=== PATIENT | female | born 1995 | race Caucasian/White ===

== ENCOUNTER 2019-02-07 00:18 | Inpatient (IN) | payer SELFPAY ==
[2019-02-07 01:41] VITALS: BMI 35.4
[2019-02-07 01:58] LABS: Absolute Lymphocyte Count 2.09 X10^3/uL (0.83-4.51); Absolute Neutrophil Count 12.3 X10^3/uL (2.0-7.7); Basophil# 0.04 X10^3/uL; Basophil% 0.3 % (0-1); Eosinophil# 0.12 X10^3/uL; Eosinophils% 0.8 % (0-5); Hematocrit 34.6 % (37-47); Hemoglobin 11.3 g/dL (12.0-15.0); Lymphocyte # 2.09 X10^3/ul (4.0); Lymphocyte % 13.3 % (19-41); Mean Corp Hgb Conc 32.7 g/dL (32-36); Mean Corpuscular Volume 79.7 fL (81-99); Mean Platelet Vol. 9.5 fl (6.2-12.0); Monocyte# 1.03 X10^3/uL; Monocyte% 6.6 % (0-10); NRBC Flagged by Analyzer 0 % (0-5); Neutrophil # 12.28 X10^3/uL (2.7-7.7); Neutrophil % 78.3 % (47-70); Platelet Count 340 K/mm3 (150-450); RBC Distribution Width CV 14.8 % (11.6-14.6); Red Blood Count 4.34 M/mm3 (4.2-5.4); White Blood Count 15.7 K/mm3 (4.4-11.0)
[2019-02-07] MEDS: Lactated Ringers 1,000 ML 50 ML IV (03:00)
[2019-02-07] MEDS: 0.9% Saline Lock 10 ML Syringe IV (03:00)
[2019-02-07] MEDS: Ondansetron 4 MG/2 ML Vial IV (03:50)
[2019-02-07] MEDS: Oxytocin 30 units/NS 500 ml 30 UNITS/500 ML IV.SOLN 334 UNITS IV (04:04)
--- NOTE | 2019-02-07 04:15 | PCM.OPRPT ---
Vaginal Delivery Maternal Presentation: Active Labor Amniotic Membrane Rupture Type: Artificial Amniotic Fluid Description: Moderate meconium Final NOAM: 01/28/19 Gestational age: 41 Weeks and 3 Days Date of Procedure: 02/07/19 Pre-Operative Diagnosis: labor Post-Operative Diagnosis: same Surgery/ Procedure Performed: Spontaneous Vaginal Delivery Type of Anesthesia: None Description of Procedure: A vigorous female infant was delivered DADA over intact perineum. The baby was delivered easily through a loose nuchal cord x1. The remainder the was delivered with maternal pushing and gentle traction only in less than 15 seconds. The Pitocin infusion was initiated for active management of the third stage. The cord was clamped and cut after 1 minute. The was attended to by the waiting nursing staff. The placenta was delivered spontaneously and intact. The cervix and vagina were intact. Sponge and needle counts were correct. A vaginal sweep was completed by me. Presentation: DADA Placental Delivery Description: Spontaneous Placenta Disposition: [facility] Cord Vessel Description: 3 Vessels Nuchal Cord Compression: Without compression Cord Entanglement: Around neck x 1, loose Drain: - - none Estimated Blood Loss: 300 Infant A gender: Female (1 minute): 8 (5 minute): 9 Episiotomy Description: None Laceration: None Medications given after delivery: IV Pitocin Complications: None
--- NOTE | 2019-02-07 04:21 | HP.PCM_ITS ---
History Date of Admission: 02/07/19 Final NOAM: 01/28/19 Gestational age: 41 Weeks and 3 Days History of this : This is a 24 year-old, 4 para 1 at 41-3/7 weeks presented in active labor. She had been receiving care from a manager home healthcare, but had established in our office earlier in . She transferred back to our office last week for being 41 weeks with a hemoglobin of 9.6 and was counseled by her manager home healthcare that she was not a good candidate for home because of this. She presented today in labor denied any vaginal bleeding or leaking of fluid. She had good movement. Contractions were getting more intense and regular. She has a history of a full-term vaginal approximately 8-1/2 pounds without complications in the past. Medical history significant for history of asthma as a child, history of anxiety, obesity in with BMI of 35 at this time, and tract infection [place] in . Allergies No Known Allergies Allergy (Verified 02/07/19 01:42) Home Medications: Home Medications Ferrous Sulfate 325 mg PO BID 02/07/19 Pnv No.95/Ferrous Fum/Folic AC [ Caplet] 1 ea PO DAILY 02/07/19 Smoking Status: Never smoker Alcohol: None Number of Fetus(es): 1 History Past Pregnancies: Past Pregnancies Delivery Date Name GA/ Weeks Outcome Route Wt Infant Sex Labor Length Anesthesia Delivery Location Provider FOB Expected Delivery Method: Spontaneous Vaginal Review of Systems Constitutional: Denies: Chills, Fever Eyes: Denies: Blurred vision Cardiovascular: Denies: Chest Pain Respiratory: Denies: Cough Gastrointestinal: Reports: Abdominal Pain Physical Exam General: Cooperative, No apparent distress Cardiovascular: Regular rate Lungs: Normal air movement Abdomen: Soft, Non Tender, Non-Distended, Gravid, Appropriate for Gestational Age EXTENSION EDUCATOR: Normal external genitalia Estimated gestational size: Appropriate for gestational size Presentation: Cephalic Assessment/Plan This is a 24 year-old, 4 para 1 at 41-3/7 weeks gestation in spontaneous labor. Estimated weight is less than 4500 g clinically and by ultrasound performed last week, this clinically adequate to expect vaginal delivery.
[2019-02-07 08:16] VITALS: BP 130/59; PULSE 89; RESP 16; TEMP 36.9; O2SAT 99
[2019-02-07] MEDS: Naproxen 250 MG Tablet 500 MG PO (10:55)
[2019-02-07 14:00] VITALS: BP 125/78; PULSE 78; RESP 17; TEMP 36.6
[2019-02-07 20:04] VITALS: BP 128/66; PULSE 73; RESP 16; TEMP 36.6; O2SAT 98
[2019-02-07 23:22] VITALS: BP 111/56; PULSE 75; RESP 14; TEMP 36.6
[2019-02-08 05:21] VITALS: BP 116/54; PULSE 79; RESP 16; TEMP 36.4
[2019-02-08 08:40] VITALS: BP 127/57; PULSE 74; RESP 16; TEMP 36.5
--- NOTE | 2019-02-08 09:02 | PCM.PN.OB ---
Subjective: Doing well per patient and nursing staff. Ambulating and taking PO without difficulty. Voiding and passing flatus. without difficulty. Planning D/C home today. - Physical Exam Vitals/I&O's: Vital Signs Temp Pulse Resp BP Pulse Ox 97.5 F L 79 16 116/54 L 98 02/08/19 05:21 02/08/19 05:21 02/08/19 05:21 02/08/19 05:21 02/07/19 20:04 Oxygen Delivery Method Room Air Weight: 206 lb 6.4 oz Body Mass Index (BMI) 35.4 Intake and Output for Last 24 Hours 02/06/19 02/07/19 02/08/19 23:59 23:59 23:59 Intake Total 550 / 550 Output Total 600 / 600 Balance -50 / -50 General: Alert, Oriented x3, Cooperative HEENT: Atraumatic, Normocephalic Neck: Trachea Midline Lungs: Clear to auscultation, Normal air movement, No rhonchi, No wheeze Cardiovascular: Regular rate, Regular Rhythm, No murmurs Abdomen: Soft, Non Tender, - - Fundus firm 2 below U Psych/Mental Status: Normal Affect, Appropriate Laboratory Results 02/07/19 08:20: Screen NEGATIVE, Baby's Blood Type O POSITIVE, Baby's REINIER NEGATIVE Current Medications Acetaminophen (Tylenol) 1,000 mg PO Q8H PRN PRN PRN Reason: Pain Score 1-3/10 Bisacodyl (Dulcolax) 10 mg RECTAL UD PRN PRN Reason: If no BM Dibucaine (Dibucaine) 1 applic TOPICAL TID PRN PRN; Protocol PRN Reason: Discomfort Hydrocortisone (Hytone) 1 applic TOPICAL TID PRN PRN; Protocol PRN Reason: Discomfort Methylergonovine Maleate (Methergine) 0.2 mg IM X1 PRN PRN Reason: Excess bleeding/uterine atony Naproxen (Naprosyn) 500 mg PO Q8H PRN PRN PRN Reason: Pain Score 1-3/10 Last Admin: 02/07/19 10:55 Dose: 500 mg Documented by: Ondansetron HCl (Zofran) 4 mg IV Q4H PRN PRN PRN Reason: Nausea Prochlorperazine Edisylate (Compazine Iv) 10 mg IV Q6H PRN PRN PRN Reason: NAUSEA/VOMITING Senna/Docusate Sodium (Senokot-S, Lavonne-Colace) 1 - 2 tablet PO DAILY PRN PRN PRN Reason: Constipation Simethicone (Mylicon) 80 mg PO PCHS PRN PRN Reason: Indigestion/Stomach pain Sodium Chloride () 5 - 15 ml IV UD PRN PRN Reason: SALINE FLUSH Last Admin: 02/07/19 03:00 Dose: 10 ml Documented by: Medical Necessity - Tobacco Use Smoking Status: Never smoker Assessment/Plan A:PPD #1 P: 1) Routine care 2) Discharge and instructions 3) D/C home today
--- NOTE | 2019-02-08 09:06 | DCINST_ITS ---
Discharge Diet: No Restrictions Discharge Activity: Return to Normal Activity, May not drive while taking narcotic pain medications., May Shower May resume sexual activity in: 4-6 weeks Additional Activity Instructions:: Nothing in the vagina for 4-6 weeks. You may return to work/school in 6 weeks. Call your doctor if your incision/area has: Continuous Slow Oozing, Sudden Increased Bleeding, Increased Pain/ Swelling, Increased Redness, Foul Smelling Discharge Call your doctor if you observe: Fever of 101 or Higher, Inability to urinate, Inability to have a bowel movement, Using more than one pad per hour, Shortness of breath, Chest pain, Increased palpitations (irregular heartbeat), Calf discomfort, Uncontrolled pain Additional Instructions: If you experience any of the following, contact your healthcare provider. * Bleeding that soaks a pad every hour for 2 hours * Fever 100.4 or higher * Unrelieved incision or abdominal pain * Swelling, redness, discharge or bleeding from your incision or episiotomy site * Your incision begins to separate * Problems urinating (including inability to urinate or burning while urinating). * Visual changes * Severe headache * Flu-like symptoms * Pain or redness in one of both of your breasts * Pain, warmth, tenderness or swelling in your legs, especially the calf area * Frequent nausea and vomiting * Symptoms of depression or anxiety If you experience any of the following, call 911 or go to the nearest Emergency Room. * Chest pain * Problems breathing * Seizure activity * Partial or complete paralysis of a body part, slurred speech, weakness or drooping of the face, or a sudden inability to walk or hold your balance Allergies/Adverse Reactions: Allergies No Known Allergies Allergy (Verified 02/07/19 01:42) Medications to take at Discharge Pnv No.95/Ferrous Fum/Folic AC [ Caplet] 1 ea PO DAILY 02/07/19 Please Follow Up With: Rolanda Carmen CNM When: Call to make an appointment with your doctor in 2 weeks and 6 weeks. Primary Care Physician: Abram Lam MD [Primary Care Provider] - Test Results: Test results from this visit will be discussed in further detail at your follow- up appointment, if applicable.
[2019-02-08 12:30] VITALS: BP 124/70; PULSE 100; RESP 16; TEMP 36.6
--- NOTE | 2019-02-08 17:18 | CASEMGMT ---
Social Work Assessment Labor and Delivery Unit Patient Address:[address] [place], [place] [address] Phone number: [phone] Date of Referral: 02.07.2019 Time of Referral: 2037 Referred By: Dr. Jolley Date of Intervention: 02.08.2019 Time of Intervention: 1400 Reason for Referral: maternal history of anxiety. History obtained from: medical records and mother of baby (MOB) Nory Lopez; father of baby (FOB) Armando Lopez also present for part of conversation. Household composition: MOB and FOB live together. MOB denies any safety concerns at home. Patient's parent/guardian status: MOB is age 25 and FOB is age 24, , together for 3 years. MOB denies any history of abuse in this relationship. MOB has an older child from prior relationship and new baby is the first for MOB and FOB together. Minor Children: [place] baby, Frida Lopez, born on 02.07.2019, father is current FOB. Roberta Red, born on 06.22.2012, father is Gerson Red. JOANNE has shared parenting with Gerson and reports though relationship together was tough, that they coparent well together and that Gerson is a good father to Roberta. Medical History: JOANNE is G4, P1 to 2. Record indicates history of one SAB in 12/2017 and one MAB in 02/2018. JOANNE's care starting at 6 weeks. Received care in the [facility] at 6-10-14-19 weeks. JOANNE saw Beverly Campo, vice president of nursing from 19-41 weeks and transferred back to [facility] office at 41 weeks due to JOANNE no longer being a good candidate for home delivery in light of low hemoglobin. Baby delivered at 6 pounds 11 ounces. Apgars 8 and 9 at 1 and 5 minutes of life. Educational Status: JOANNE has an associates degree in practical nursing. JOANNE is able to read, write, and understand what is read. 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 JOANNE provides care to JOANNE's nvoepu-ii-uaw who has a G-tube and home trach. 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 Infant Supplies: JOANNE reports to have all needed supplies including car seat, bassinet, crib, clothes, diapers, and wipes. MOB is breast feeding baby. Childcare/Caregiver(s): MOB will be primary caregiver. Transportation: Both parents drive. Programs/Agencies Involved: No agency involvement due to making too much money. No reported history of children services. Behavioral Health Issues: Mental Health History: MOB reports history of anxiety and possible PTSD from an ex (Roberta's father). MOB reports took medicine for awhile and then went off due to feeling worse on the medicine. MOB reports once getting out of that relationship she felt much better. Denies any history of suicidal ideation, planning or intent. Substance Use History: None reported. Family History: MOB has a paternal grandfather with history of alcohol issues. MOB's father history of alcohol and heroin. MOB's mother history of heroin and opiates. Drug Screens: maternal screen is negative on 06.09.2018 Family/Social Stressors: No current stressors identified. Support Systems: MOB reports FOB is a strong support, as well as FOB's family is local and MOB's brother. Depression/Shaken Baby/Safe Sleeping : Information provided and reviewed. ASSESSMENT: Met with MOB and FOB together in room, and then alone with MOB where depression screening and domestic violence questioning reviewed. Moodus depression screen completed with a score of 2. MOB denies any safety or abuse concerns with FOB. MOB and FOB both pleasant and engaged in conversation. MOB and FOB both listened to education on depression, safe sleeping and shaken baby prevention. MOB reports to have help at home going, reports to have needed supplies, and to feel excited and happy about this baby. MOB denies any needs for home going. MOB accepting of resource lists for [facility] and then for depression. MOB attentive to baby during assessment. No concerns identified with mother/child bonding or interactions. No voiced concerns by the nursing. PLAN: MOB and baby to home. Resource information given for home going. No other services requested or indicated. -LOU Vela MSW
== END 2019-02-08 14:00 | disposition home or self-care (01) | DRG 807 ==
PROVIDERS: Admitting Provider Obstetrics & Gynecology; Visit Provider Obstetrics & Gynecology
DX: O48.0 Post-term pregnancy (principal); O77.0 Labor and delivery complicated by meconium in amniotic fluid; O69.1XX0 Labor and delivery complicated by cord around neck, with compression, not applicable or unspecified; Z3A.41 41 weeks gestation of pregnancy; Z87.09 Personal history of other diseases of the respiratory system; Z37.0 Single live birth
CPT/HCPCS: 59025; 59050; 85025; 85461; 86850; 86900; 86901; 90384; 99218; J7120; A4216; G0378; J2405; J2790

== ENCOUNTER → 2020-05-19 16:41 | Outpatient (CLI) | payer OTHER, SELFPAY ==
[2020-05-19 14:08] VITALS: BMI 34.7
== END ==
PROVIDERS: PCP Nurse Practitioner Family; Referring Provider Obstetrics & Gynecology; Visit Provider Obstetrics & Gynecology
DX: O23.40 Unspecified infection of urinary tract in pregnancy, unspecified trimester (principal); Z3A.00 Weeks of gestation of pregnancy not specified
CPT/HCPCS: 87086; 87088

== ENCOUNTER → 2020-06-14 10:33 | Outpatient (CLI) | payer OTHER, SELFPAY ==
[2020-06-06 13:32] VITALS: BMI 34.7
[2020-06-14 11:43] LABS: Absolute Lymphocyte Count 1.47 X10^3/uL (0.83-4.51); Absolute Neutrophil Count 9.9 X10^3/uL (2.0-7.7); Basophil# 0.02 X10^3/uL; Basophil% 0.2 % (0-1); Eosinophils% 0.8 % (0-5); Hematocrit 33.8 % (37-47); Hemoglobin 10.7 g/dL (12.0-15.0); Lymphocyte # 1.47 X10^3/ul (0.83-4.51); Lymphocyte % 12.1 % (19-41); Mean Corp Hgb Conc 31.7 g/dL (32-36); Mean Corpuscular Hgb 27.3 pg (27.0-32.0); Mean Corpuscular Volume 86.2 fL (81-99); Mean Platelet Vol. 10.2 fl (6.2-12.0); Monocyte# 0.59 X10^3/uL; Monocyte% 4.9 % (0-10); NRBC Flagged by Analyzer 0 % (0-5); Neutrophil # 9.87 X10^3/uL (2.7-7.7); Neutrophil % 81.1 % (47-70); Platelet Count 328 K/mm3 (150-450); RBC Distribution Width CV 14.2 % (11.6-14.6); RBC Distribution Width SD 44.6 fl (35.1-43.9); Red Blood Count 3.92 M/mm3 (4.2-5.4); White Blood Count 12.2 K/mm3 (4.4-11.0)
[2020-06-14 12:04] LABS: Glucose Challenge Gest 1H 50g 115 mg/dL (70-140)
== END ==
LOC: LAB 10:37
PROVIDERS: PCP Nurse Practitioner Family; Referring Provider Obstetrics & Gynecology; Visit Provider Obstetrics & Gynecology
DX: Z34.90 Encounter for supervision of normal pregnancy, unspecified, unspecified trimester (principal); Z13.1 Encounter for screening for diabetes mellitus
CPT/HCPCS: 36415; 82950; 85025

== ENCOUNTER → 2020-07-07 14:39 | Outpatient (CLI) | payer MEDICAID, SELFPAY ==
[2020-07-07 14:17] VITALS: BMI 34.7
== END ==
PROVIDERS: PCP Nurse Practitioner Family; Referring Provider Obstetrics & Gynecology; Visit Provider Obstetrics & Gynecology
DX: Z34.82 Encounter for supervision of other normal pregnancy, second trimester (principal); Z3A.28 28 weeks gestation of pregnancy
CPT/HCPCS: 36415; 86850; 86900; 86901

== ENCOUNTER → 2020-08-30 11:44 | Outpatient (CLI) | payer SELFPAY ==
[2020-08-30 11:08] VITALS: BMI 35.9
== END ==
PROVIDERS: PCP Nurse Practitioner Family; Visit Provider Obstetrics & Gynecology
DX: Z34.90 Encounter for supervision of normal pregnancy, unspecified, unspecified trimester (principal)
CPT/HCPCS: 87081

== ENCOUNTER 2020-09-20 14:00 | Inpatient (IN) | payer SELFPAY ==
[2020-09-13 11:09] VITALS: BMI 35.9
[2020-09-20] VITALS (17 sets, daily range): BP systolic 100–135; BP diastolic 54–71; PULSE 70–106; TEMP 36.6–37.6; O2SAT 98–99; BMI 35.9; BMI 34.9
[2020-09-20] MEDS: Lactated Ringers 1,000 ML 50 ML IV (14:30)
[2020-09-20 14:47] LABS: Absolute Lymphocyte Count 1.57 X10^3/uL (0.83-4.51); Absolute Neutrophil Count 10.4 X10^3/uL (2.0-7.7); Basophil# 0.02 X10^3/uL; Basophil% 0.2 % (0-1); Eosinophil# 0.08 X10^3/uL; Eosinophils% 0.6 % (0-5); Lymphocyte # 1.57 X10^3/ul (0.83-4.51); Lymphocyte % 12.3 % (19-41); Mean Corp Hgb Conc 32.4 g/dL (32-36); Mean Corpuscular Hgb 26.3 pg (27.0-32.0); Mean Corpuscular Volume 81.1 fL (81-99); Monocyte# 0.56 X10^3/uL; Monocyte% 4.4 % (0-10); NRBC Flagged by Analyzer 0 % (0-5); Neutrophil # 10.37 X10^3/uL (2.7-7.7); Neutrophil % 81.1 % (47-70); Platelet Count 298 K/mm3 (150-450); RBC Distribution Width CV 14.4 % (11.6-14.6); RBC Distribution Width SD 42.3 fl (35.1-43.9); Red Blood Count 4.19 M/mm3 (4.2-5.4); White Blood Count 12.8 K/mm3 (4.4-11.0)
[2020-09-20] MEDS: miSOPROStol 25 MCG TABLET VAGINAL (15:36)
--- NOTE | 2020-09-20 16:09 | HP.PCM.OB_ITS ---
HPI - General General Date of Admission: 09/20/20 HPI Narrative BALA BARBOSA, is a 25 F at 39 weeks who presents for induction of labor for decreased movement Maternal Data Information NOAM Calculator Estimated Delivery Date Method Current WG Current Estimate 09/23/20 LMP (Certain) 39w 4d PFSH PFSH Medical History Acid reflux Asthma Home Medications PNV cmb#95-ferrous fumarate-FA 1 ea PO DAILY 02/07/19 [History Last Taken 09/19/20 21:00] doxylamine succinate 25 mg tablet 25 mg PO QHS PRN 03/15/20 [History Last Taken 09/19/20 21:00] pyridoxine (vitamin B6) 100 mg tablet 100 mg PO DAILY 03/15/20 [History Last Taken 09/19/20 21:00] ondansetron HCl 4 mg tablet 4 mg PO Q8H PRN #20 tab 04/12/20 [Rx Last Taken 09/20/20 12:00] cephalexin 500 mg PO QDAY 09/20/20 [History Last Taken Unknown] Allergy/AdvReac Type Severity Reaction Status Date / Time No Known Allergies Allergy Verified 09/20/20 09:10 Family History Father Hypertension Substance abuse Grandmother Leukemia Grandfather Prostate cancer Brother Congenital heart valve abnormality Unknown Autism Mother Substance abuse Surgical History History of tonsillectomy and adenoidectomy [place] teeth extracted Social History Smoking Status: Never smoker alcohol intake: never substance use type: does not use caffeine: No what type of physical activity do you participate in: none seatbelt use: always do you feel safe at home: Yes additional social history: Cimgkeh-Bgsue-Fdjvafzypf Patient is independent nurse for [employer] History 5 Elective abortions Hx Para 2 Spontaneous abortions 3 Hx # Term Pregnancies Ectopic pregnancies Hx # Pregnancies Multiple births # of living children 2 Past Pregnancies Del. Date Name GA/Weeks Outcome Route Bth Weight Gen Labor Lgth Anesthesia Del Locatn Provider FOB 06/22/12 Roberta 41 live - full term Female non e [facility] Dr. Shola Corera 02/07/19 Frida 41 live - full term Female none [facility] Dr. Shola Roberts Delivery Date: 06/22/12 Anemic during , no issues with delivery Farhana Cowan Delivery Date: 02/07/19 Anemic during , no issues during delivery Farhana Cowan Visit Details Expected Delivery Route/Plan by 42 Labor Preferences- CB/BF classes: no labor support person: Armando labor intervention preferences: delivered in hands and knees last time, prefers to avoid laboring on back, tub in labor, avoid internal monitors if possible, prefers natural ROM (avoid AROM), ok with vitamin K and hep B, avoid eye ointment pain management options preferred: natural cut cord/dad catch: yes : yes PP control planned: considering Paragard discussed possible routes of delivery and associated risks: [] special requests: [] Plans covid status: flu vaccine: given tdap vaccine: 07/07 rhogam: 07/07 LARC form signed: 07/19 Problem list reviewed and updated with the most current plan of care details and appropriate orders placed. Relevant counseling for the gestational age provided. Continue routine care and follow up unless otherwise noted in visit notes/problem list details OB Flowsheet Initial Weight: Not Recorded Date -?-?-?-?-?-?-?-?-?-?-?-?- EGA Weight BP Urine Prot -?-?-?-?-?-?-?-?-?-?-?-?- Glucose FHR FuHt Pres Dilation -?-?-?-?-?-?-?-?-?-?-?-?- Effaced St Visit Note 03/15/20 -?-?-?-?-?-?-?-?-?-?-?-?- 12w 4d 204 lb 4 oz 110/60 Nega tive -?-?-?-?-?-?-?-?-?-?-?-?- Negative 160 -?-?-?-?-?-?-?-?-?-?-?-?- GP - ANIBAL from [facility] due to insurance issues. Oriented to practice. NOB book given. ROR signed for labs. Already did labs and early 1h GCT. 04/12/20 -?-?-?-?-?-?-?-?-?-?-?-?- 16w 4d 199 lb 6 oz 124/60 Nega tive -?-?-?-?-?-?-?-?-?-?-?-?- Negative 157 -?-?-?-?-?-?-?-?-?-?-?-?- GP - PRR from [facility]. 1h GCT normal. Denies complaints aside from occasional nausea - script sent for roxanna. Anatomy scan scheduled. 05/19/20 -?-?-?-?-?-?-?-?-?-?-?-?- 21w 6d 202 lb 6 oz 120/60 Nega tive -?-?-?-?-?-?-?-?-?-?-?-?- Negative 145 -?-?-?-?-?-?-?-?-?-?-?-?- SM- no vb lof cr amping reviewed US 06/06/20 -?-?-?-?-?-?-?-?-?-?-?-?- 24w 3d 203 lb 6 oz 122/62 Trac e -?-?-?-?-?-?-?-?-?-?-?-?- Negative 144 -?-?-?-?-?-?-?-?-?-?-?-?- -work in for i ntense vaginal itching. Used monistat last pm. NO VB, LOF. Good FM. See exam 06/14/20 -?-?-?-?-?-?-?-?-?-?-?-?- 25w 4d 206 lb 112/60 Negative -?-?-?-?-?-?-?--?-?-?-?-?- Negative 145 25 -?-?-?-?-?-?-?-?-?-?-?-?- GP - no LOF, VB, DFM, ctx. CBC reviewed. GCT pending. 06/16/20 -?-?-?-?-?-?-?-?-?-?-?-?- 25w 6d -?-?-?-?-?-?-?-?-?-?-?-?- -?-?-?-?-?-?-?-?-?-?-?-?- 07/07/20 -?-?-?-?-?-?-?-?-?-?-?-?- 28w 6d 207 lb 122/80 Negative -?-?-?-?-?-?-?-?-?-?-?-?- Negative 135 28 -?-?-?-?-?-?-?-?-?-?-?-?- GP - no LOF, VB, DFM, ctx. Rhogam and TDAP today. 07/19/20 -?-?-?-?-?-?-?-?-?-?-?-?- 30w 4d 206 lb 4 oz 110/62 Nega tive -?-?-?-?-?-?-?-?-?-?-?-?- Negative 140 30 -?-?-?-?-?-?-?-?-?-?-?-?- GP - No LOF, VB, DFM, ctx. Discussed PP control. 08/04/20 -?-?-?-?-?-?-?-?-?-?-?-?- 32w 6d 210 lb 144/60 Negative -?-?-?-?-?-?-?-?-?-?-?-?- Negative 130 33 -?-?-?-?-?-?-?-?-?-?-?-?- SM- no vb lof go od fm no reuglar ctx 08/16/20 -?-?-?-?-?-?-?-?-?-?-?-?- 34w 4d 209 lb 8 oz 128/60 Nega tive -?--?-?-?-?-?-?-?-?-?-?-?- Negative 150 34 -?-?-?-?-?-?-?-?-?-?-?-?- GP - no LOF, VB, DFM, ctx. Discussed labor preferences. 08/30/20 -?-?-?-?-?-?-?-?-?-?-?-?- 36w 4d 212 lb 124/70 Negative -?-?-?-?-?-?-?-?-?-?-?-?- Negative 135 36 Cephalic 1 -?-?-?-?-?-?-?-?-?-?-?-?- 50 -3 GP - no LO F, VB, DFM, ctx. Denies complaints. GBS today. 09/08/20 -?-?-?-?-?-?-?-?-?-?-?-?- 37w 6d 210 lb 102/76 -?-?-?-?-?-?-?-?-?-?-?-?- 135 28 Cephalic 1 -?-?-?-?-?-?-?-?-?-?-?-?- 50 -3 SM- no vb lof good fm no regular ctx. co hip and back pain. 09/13/20 -?-?-?-?-?-?-?-?-?-?-?-?- 38w 4d 207 lb 4 oz 118/72 Nega tive -?-?-?-?-?-?-?-?-?-?-?-?- Negative 135 38 Cephalic 1 -?-?-?-?-?-?-?-?-?-?-?-?- 50 -3 GP - no LO F, VB, DFM, ctx. Denies complaints. 09/20/20 -?-?-?-?-?-?-?-?-?-?-?-?- 39w 4d 210 lb 6 oz 122/66 Nega tive -?-?-?-?-?-?-?-?-?-?-?-?- Negative 135 39 Transverse Cephalic 1 -?-?-?-?-?-?-?-?-?-?-?-?- 50 -3 GP - no LO F, VB, ctx. DFM over last 2 days. Feeling movement but just less than previously. NST done in office. GP - no LOF, VB, ctx. DFM ov er last 2 days. Feeling movement but just less than previously. NST done in office. Plan IOL this afternoon 09/20/20 -?-?-?-?-?-?-?-?-?-?-?-?- 39w 4d 210 lb 5.136 oz 135/ 66 114/57 -?-?-?-?-?-?-?-?-?-?--?-?- -?-?-?-?-?-?-?-?-?-?-?-?- NST FHR Rate Baby A Baseline: 130 Variability:: Moderate Accelerations:: 15 x 15 Decelerations:: None NST Reactive:: Yes FHR Category:: Category I Uterine Activity:: irritability ROS Eyes Eyes: Reports systems reviewed and no addt'l complaints, except as documented ENT HEENT: Reports systems reviewed and no addt'l complaints, except as documented Cardiovascular Cardiovascular: Reports systems reviewed and no addt'l complaints, except as documented Respiratory/Chest Respiratory/Chest: Reports systems reviewed and no addt'l complaints, except as documented Gastrointestinal Gastrointestinal: Reports systems reviewed and no addt'l complaints, except as documented Genitourinary Genitourinary: Reports systems reviewed and no addt'l complaints, except as documented Musculoskeletal Musculoskeletal: Reports systems reviewed and no addt'l complaints, except as documented Integumentary Integumentary: Reports systems reviewed and no addt'l complaints, except as documented Neurologic Neurologic: Reports systems reviewed and no addt'l complaints, except as documented Psychiatric Psychiatric: Reports systems reviewed and no addt'l complaints, except as documented Endocrine Endocrinology: Reports systems reviewed and no addt'l complaints, except as documented Hematologic/Lymphatic Hematologic/Lymphatic: Reports systems reviewed and no addt'l complaints, except as documented Allergic/Immunologic Allergic/Immunologic: Reports systems reviewed and no addt'l complaints, except as documented Vital Signs Vital Signs Vital Signs: 09/20/20 14:35 09/20/20 14:37 09/20/20 15:43 Temperature 98.2 F 98.2 F Temperature Source Temporal Pulse Rate 90 77 Blood Pressure 135/66 H 114/57 L BP Systolic 135 114 BP Diastolic 66 57 Weight Weight: 210 lb 5.136 oz Body Mass Index (BMI) 34.9 Physical Exam Const alert, oriented x3, no apparent distress, average body habitus, healthy appearing and well nourished HEENT normocephalic and moist oral mucous membranes Head and Scalp: atraumatic Eyes PERRL and EOMs intact bilaterally Neck full ROM Resp normal respiratory effort, no retractions and no use of accessory muscles Cardio regular rate and regular rhythm GI soft to palpation, non-tender and non-distended Manual OB Exam: dilated 3, effaced 50 and station -2 Extremity normal to inspection and full ROM Skin no rashes or lesions noted Neuro no focal motor deficits and no sensory deficits noted Psych mental status grossly normal, affect normal, speech normal and activity/motor behavior normal Labs Labs Labs: Blood Type O NEGATIVE Antibody Screen NEGATIVE Hct 34.0 % (37-47) L Hgb 11.0 g/dL (12.0-15.0) L Pap Smear Negative Glucose 1 Hr 50 gm 115 mg/dL (70-140) Rhogam given: Yes Assessment & Plan (1) Anemia affecting : COMMENT: iron added (2) Monilial vaginitis: COMMENT: Finish monistat 7. OTC hydrocortisone cream, ice packs, PROCESS CONTROL ENGINEER skin care (3) Recurrent UTI (urinary tract infection) complicating : COMMENT: keflex 500 daily prophylaxis (4) History of recurrent miscarriages: COMMENT: On ASA started by [facility] (5) Obesity affecting : QUALIFIERS: Trimester: second trimester Qualified Code(s): O99.212 - Obesity complicating , second trimester COMMENT: BMI 35. Early 1h GCT passed at [facility] (6) Rh negative status during : QUALIFIERS: Trimester: second trimester Qualified Code(s): O26.892 - Other specified related conditions, second trimester; Z67.91 - Unspecified blood type, Rh negative COMMENT: rhogam at 28w and prn (7) Supervision of normal : QUALIFIERS: Normal : other normal Trimester: second trimester Qualified Code(s): Z34.82 - Encounter for supervision of other normal , second trimester COMMENT: PRR NOAM 09/23/20 boy PC:Frida Granados, Spouse:Armando (8) : QUALIFIERS: Weeks of gestation: 39 weeks Qualified Code(s): Z3A.39 - 39 weeks gestation of COMMENT: Declines genetic and carrier; NL anatomy (9) Encounter for induction of labor: PLAN: Patient presents IOL, plan management for with cytotec. Pain management: desires minimal intervention. GBS negative. Management of any complications: none I have reviewed the [facility] and made any clinically relevant updates. (10) Decreased movement: COMMENT: Consistent for past 3 days. Scheduled for IOL
[2020-09-20] MEDS: 0.9% Saline Lock 10 ML Syringe IV (17:09)
[2020-09-21] VITALS (60 sets, daily range): BP systolic 93–135; BP diastolic 55–76; PULSE 73–101; RESP 16; TEMP 36.4–36.9; O2SAT 96–99
[2020-09-21] MEDS: Lactated Ringers 500 ML 999 ML IV (01:48)
[2020-09-21] MEDS: 0.9% Saline Lock 10 ML Syringe IV (01:52)
[2020-09-21] MEDS: fentaNYL-bupivacaine (epidural) 100 ML BAG EPIDURAL ×3 (02:50→08:17)
[2020-09-21] MEDS: Oxytocin 30 units/NS 500 ml 30 UNITS/500 ML IV.SOLN IV (03:45)
[2020-09-21] MEDS: Ondansetron 4 MG/2 ML Vial IV (07:52)
[2020-09-21] MEDS: Lactated Ringers 1,000 ML 200 ML IV (08:07)
--- NOTE | 2020-09-21 10:06 | EX.PCM.OBRPT ---
Assessment & Plan (1) Spontaneous vaginal delivery: (2) Decreased movement: COMMENT: Consistent for past 3 days. Scheduled for IOL (3) Encounter for induction of labor: (4) Anemia affecting : COMMENT: iron added (5) Monilial vaginitis: COMMENT: Finish monistat 7. OTC hydrocortisone cream, ice packs, [employer] skin care (6) Recurrent UTI (urinary tract infection) complicating : COMMENT: keflex 500 daily prophylaxis (7) History of recurrent miscarriages: COMMENT: On ASA started by [facility] (8) Obesity affecting : QUALIFIERS: Trimester: second trimester Qualified Code(s): O99.212 - Obesity complicating , second trimester COMMENT: BMI 35. Early 1h GCT passed at [facility] (9) Rh negative status during : QUALIFIERS: Trimester: second trimester Qualified Code(s): O26.892 - Other specified related conditions, second trimester; Z67.91 - Unspecified blood type, Rh negative COMMENT: rhogam at 28w and prn (10) Supervision of normal : QUALIFIERS: Normal : other normal Trimester: second trimester Qualified Code(s): Z34.82 - Encounter for supervision of other normal , second trimester COMMENT: PRR NOAM 09/23/20 boy PC:Frida Granados, Spouse:Armando (11) : QUALIFIERS: Weeks of gestation: 39 weeks Qualified Code(s): Z3A.39 - 39 weeks gestation of COMMENT: Declines genetic and carrier; NL anatomy Maternal Data Information NOAM Calculator Estimated Delivery Date Method Current WG Current Estimate 09/23/20 LMP (Certain) 39w 5d Vaginal Delivery Maternal Presentation Maternal Presentation: Medically Indicated Induction Maternal Presentation: 25-year-old G5, P2 at 39 weeks admitted for induction of labor for decreased movement. Patient was induced with Cytotec followed by Pitocin. Type of Induction: Pitocin and Cytotec Medical Reason for Induction: Compromise: list: (Decreased movement) Operative Information Date of Procedure: 09/21/20 Pre-Operative Diagnosis: Term , induction for decreased movement Post-Operative Diagnosis: Same Surgery / Procedure Performed: Spontaneous Vaginal Delivery Type of Anesthesia: Epidural Drain: Adams to straight drain Estimated Blood Loss: 200 cc Findings Description of Procedure: Patient began pushing and delivered the head in the ROSSY presentation. The head was delivered atraumatically and no nuchal cord was noted. The anterior and posterior shoulders delivered without complication followed by the rest of the infant and the was placed on the maternal abdomen. Delayed cord clamping was employed for approximately 60 seconds. Cord was clamped and cut and gentle traction was applied to the cord and the placenta delivered spontaneously immediately following it was noted to be intact with three-vessel cord. The perineum and vagina were inspected and noted to have no laceration. EBL was 200 cc. Patient and tolerated delivery well. Presentation: Vertex and ROSSY Amniotic Membrane Rupture Type: Artificial Amniotic Fluid Description: Clear Placental Delivery Description: Spontaneous Placenta Disposition: [facility] Cord Vessel Description: 3 Vessels Cord Entanglement: None Infant A Gender: Male Delayed Cord Clamping: Yes Post Vaginal Delivery Medications Given After Delivery: IV Pitocin Episiotomy Description: None Laceration: None Complication Complications: None Procedures Urinary/Genital [id number]: [id number] Vaginal Delivery [facility]
--- NOTE | 2020-09-21 12:40 | PCM.DC ---
Discharge Instructions Diet Discharge Diet: No restrictions Activity Discharge Activity: Return to Normal Activity, May Not Drive (while taking narcotic pain medications.) and May Shower May resume sexual activity in: 4-6 weeks Dressing / Incision Call your doctor if your incision/area has: Continuous Slow Oozing, Sudden Increased Bleeding, Increased Pain/ Swelling, Increased Redness and Foul Smelling Discharge Follow Up Care When: Call to make an appointment with your doctor in 6 weeks. If you had elevated Blood Pressure or 4th degree laceration you will need to be seen in 2 weeks. Test Results: Test results from this visit will be discussed in further detail at your follow-up appointment, if applicable. Discharge Plan Admission Admit Date/Time: 09/20/20 14:00 Attending Provider: Sussy Mixon Primary Care Provider: Sabine Ayala NP Instructions Patient Instructions: After a Vaginal Discharge Orders/Prescriptions Prescriptions: New ibuprofen 800 mg tablet 800 mg PO Q8H PRN (Reason: pain) Qty: 30 RF: 1 Continued pyridoxine (vitamin B6) 100 mg tablet 100 mg PO DAILY RF: 0 Unisom (doxylamine) 25 mg tablet 25 mg PO QHS PRN (Reason: Sleep) RF: 0 ondansetron HCl 4 mg tablet 4 mg PO Q8H PRN (Reason: nausea and vomiting) Qty: 20 RF: 3 PNV cmb#[id number]-ferrous fumarate-FA 1 EACH tablet 1 ea PO DAILY RF: 0 cephalexin 500 mg capsule 500 mg PO QDAY RF: 0 Referrals / Follow Up: Sabine Ayala NP, [employer] [Primary Care Provider] -
[2020-09-21] MEDS: Ibuprofen 600 MG Tablet PO ×2 (17:08→23:37)
[2020-09-21] MEDS: Acetaminophen 500 MG Tablet 1000 MG PO (19:33)
[2020-09-22] MEDS: Acetaminophen 500 MG Tablet 1000 MG PO ×2 (02:33→09:58)
[2020-09-22 03:59] VITALS: TEMP 36.6
[2020-09-22 04:00] VITALS: BP 110/56; PULSE 75
[2020-09-22 04:09] VITALS: BP 110/56; PULSE 75; RESP 18; TEMP 36.6
[2020-09-22] MEDS: Ibuprofen 600 MG Tablet PO (06:56)
[2020-09-22 08:37] VITALS: BP 119/57; PULSE 77
[2020-09-22 08:46] VITALS: BP 119/57; PULSE 77; RESP 14; TEMP 36.8
--- NOTE | 2020-09-22 10:35 | PN.OBGYN_ITS ---
Subjective Subjective Patient doing well without complaints. Tolerating PO. Ambulating and voiding without difficulty. Breast feeding well. Denies chest pain, shortness of breath, calf pain/swelling, fevers, chills, lightheadedness. Objective Data Objective Data Vital Signs: Vital Signs Temp Pulse Resp BP Pulse Ox 98.2 F 77 14 119/57 L 99 09/22/20 08:46 09/22/20 08:46 09/22/20 08:46 09/22/20 08:46 09/21/20 10:27 Oxygen Delivery Method Room Air Weight: 210 lb 5.136 oz Body Mass Index (BMI) 34.9 Intake & Output: Intake and Output for Last 24 Hours 09/20/20 09/21/20 09/22/20 23:59 23:59 23:59 Intake Total 752.5 / 1052.5 2541.24 / 2541.24 Output Total 800 / 1100 1800 / 1800 Balance -47.5 / -47.5 741.24 / 741.24 Lab / Micro Data Result Diagrams: 09/20/20 14:30 Labs: Laboratory Results - last 24 hr 09/21/20 17:10: Screen NEGATIVE, Baby's Blood Type B POSITIVE, Baby's REINIER NEGATIVE ROS Constitutional Constitutional: Denies fever(s) Cardiovascular Cardiovascular: Denies chest pain, dyspnea or lightheadedness Gastrointestinal Gastrointestinal: Reports abdominal pain; Denies constipation or diarrhea Neurologic Neurologic: Denies dizziness or headache(s) Physical Exam Const alert, oriented x3, no apparent distress, average body habitus, healthy a ppearing and well nourished HEENT normocephalic Head and Scalp: atraumatic Eyes PERRL and EOMs intact bilaterally Neck full ROM Lymph Lymphatic: no lymphadenopathy noted Resp normal respiratory effort, no retractions and no use of accessory muscles Cardio regular rate GI soft to palpation, non-tender and non-distended Palpation: other Other Details: fundus firm Extremity normal to inspection and no clubbing, cyanosis or edema Skin no rashes or lesions noted Neuro no focal motor deficits and no sensory deficits noted Psych mental status grossly normal, affect normal and speech normal Assessment & Plan (1) Spontaneous vaginal delivery: PLAN: s/p PPD # 1 1. routine post delivery care 2. breast feeding- support given 3. rh positive 4. rubella immune
== END 2020-09-22 11:45 | disposition home or self-care (01) | DRG 806 ==
PROVIDERS: Admitting Provider Obstetrics & Gynecology; PCP Nurse Practitioner Family; Visit Provider Obstetrics & Gynecology
DX: O36.8130 Decreased fetal movements, third trimester, not applicable or unspecified (principal); F84.0 Autistic disorder; Z37.0 Single live birth; O26.23 Pregnancy care for patient with recurrent pregnancy loss, third trimester; Z3A.39 39 weeks gestation of pregnancy; O99.02 Anemia complicating childbirth; D64.9 Anemia, unspecified; O99.344 Other mental disorders complicating childbirth; Z80.42 Family history of malignant neoplasm of prostate; Z80.6 Family history of leukemia; Z81.4 Family history of other substance abuse and dependence; Z82.49 Family history of ischemic heart disease and other diseases of the circulatory system; Z67.91 Unspecified blood type, Rh negative; Z87.440 Personal history of urinary (tract) infections
CPT/HCPCS: 59020; 59025; 59050; 85025; 85461; 86850; 86900; 86901; 90384; 99218; J7120; A4216; G0378; J2405; J2790